=== PATIENT | female | born 1955 | race Caucasian/White ===

== ENCOUNTER 2019-09-05 05:45 | Day surgery (SDC) | payer MEDICARE ==
[2019-09-04 14:55] LABS: BASOPHILS 0.5 % (0-2); EOSINOPHILS 3.4 % (0-7); HEMATOCRIT 38.9 % (36.0-48.0); HEMOGLOBIN 12.6 g/dL (12-16); IMMATURE GRANULOCYTES 0.7 % (0-5); MCH 34.8 pg (26.0-34.0); MCHC 32.4 g/dL (31.0-37.0); MCV 107.5 fL (80.0-100.0); MEAN PLATELET VOLUME 9.5 fL (7.4-10.4); MONOCYTES 6.9 % (2-11); NEUTROPHILS 59.5 % (40-80); PLATELET COUNT 276 10x3/uL (130-400); RBC 3.62 10x6/uL (4.00-5.40); RDW 13.2 % (11.5-14.5)
[2019-09-04 15:06] LABS: APTT 31.1 SECONDS (22.8-39.4); INR 0.86 (0.85-1.17); PROTIME 11.3 SECONDS (11.6-15.0)
[2019-09-04 15:08] LABS: CALC OSMOLALITY 277 mosm/kg (275-300); CALCIUM 8.6 mg/dL (8.5-10.1); CHLORIDE - SERUM 105 mmol/L (98-107); CREATININE - SERUM 0.7 mg/dL (0.6-1.3); GLUCOSE 90 mg/dL (74-106); POTASSIUM - SERUM 4.1 mmol/L (3.5-5.1); SODIUM 140 mmol/L (136-145); UREA NITROGEN 10 mg/dL (7-18); eGFR NON AFRICAN AMERICAN 89 mL/min (90-120)
[~2019-09-05] VITALS: Ht 160 cm; Wt 73.0 kg
[~2019-09-05 05:45] MED LIST: ALBUTEROL SULF8.5 GM; CETIRIZINE HCL5 MG PO; CYCLOBENZAPRINE10 MG PO; CYMBALTA60 MG PO; DELSYM30 MG/5 M1 PO; HYDROCODON-ACE1 EA10 PO; LISINOPRIL5 MG PO; MUCINEX600 MG PO; NEXIUM20 MG PO; PREVALITE POWD231 GM PO; RESTORIL15 MG PO; WELLBUTRIN XL150 M1 PO
--- NOTE | 2019-09-05 06:36 | NUR ---
0620 PT REPORTS TAKING A SHOT OF WHISKEY WITH HER MORNING MEDICATIONS. INFORMATION RELAYED TO KEYBOARDING CLERK, QUAN PRATT, AND A BLOOD ALCOHOL LEVEL WAS REQUESTED FOR THIS PATIENT. 0637 PT CRYING AND VERY EMOTIONAL THIS AM. STATES HER MOTHER AND CHILD IN THIS HOSPITAL. PT STATES THAT SHE NEEDS SOME "HELP" [facility] CONSULT CALLED TO HOUSE NURSING SEMIAUTOMATIC STITCHER OPERATOR.
[2019-09-05 06:44] VITALS: Ht 160 cm; Wt 73.0 kg
--- NOTE | 2019-09-05 08:02 | NUR ---
DR. WELCH NOTIFIED AND REVIEWED PT'S BEHAVIOR AND ASSESSMENT RESULTS. PT IS A LOW RISK PER DR. WELCH. DR. WELCH STATED TO GIVE RESOURCES TO PT AT TIME OF DISCHARGE. NO FURTHER ORDERS AT THIS TIME. RESOURCES REVIWED WITH PT AND SHE VERBALIZED UNDERSTANDING.
--- NOTE | 2019-09-05 08:43 | NUR ---
PT RIGHT FOOT AND CALF NOTED HAVING SWELLING, REDNESS AND WARM TO TOUCH. REDNESS NOTED GOING UP RIGHT THIGH. PT STATES THAT SOMETIMES HER FEET SWELL BECAUSE SHE "CROSSES HER ANKLES ALOT." STATES SHE HAS NO HISTORY BLOOD CLOTS. NO REDNESS OR SWELLING NOTED TO LEFT FOOT OR LEG.
[2019-09-05] MEDS ORDERED: ROXICODONE15 MG PO (09:28)
--- NOTE | 2019-09-05 12:45 | NUR ---
PATIENT AMBULATES TO BATHROOM AND VOIDS LARGE AMOUNT IN TOILET WITHOUT DIFFICULTY. PIV DC'D WITH TIP INTACT. PATIENT DRESSING IN PERSONAL CLOTHING
--- NOTE | 2019-09-17 13:37 | OP ---
PATIENT NAME: RAVEN VANN MEDICAL RECORD: [id number] :53 LOCATION:D.OPS ADMISSION DATE: SURGEON: BREEZY SHEN MD DATE OF OPERATION: 09/05/2019 PREOPERATIVE DIAGNOSES: 1. Ventral hernia. 2. Umbilical hernia. 3. Left inguinal hernia. 4. Hypertension. 5. Asthma. POSTOPERATIVE DIAGNOSES: 1. Ventral hernia. 2. Umbilical hernia. 3. Left inguinal hernia. 4. Hypertension. 5. Asthma. PROCEDURE: 1. Ventral hernia repair. 2. Umbilical hernia repair. 3. Left inguinal hernia repair with medium PHS mesh. SURGEON: Breezy Shne MD REPORT OF PROCEDURE: The patient's abdomen and left groin were prepped and draped in sterile fashion. A midline incision was made in the epigastric region. Electrocautery was used to dissect through the subcutaneous tissues and we came down to a small hernia sac. We dissected around this hernia sac and we were eventually able to free the hernia sac up at the fascial edges. This tissue was pushed back into the abdominal cavity and we were able to inspect the anterior abdominal wall with finger dissection. I could feel down to the patient's umbilicus and there was a small hernia defect present there as well. The hernia defect was about 1.5 cm wide and about a cm tall. We went ahead and performed a primary closure with interrupted 0 Prolenes times 4 in a transverse fashion. There was good approximation of the tissue with little to no tension. We then irrigated out the wound with normal saline. The subcutaneous tissues were reapproximated with interrupted 3-0 Vicryl and the skin was closed with running subcutaneous 5-0 Monocryl. A 5 mL of 0.25% Marcaine with epinephrine was infused into the surrounding tissues of this wound. We then approached the umbilicus. A semicircular incision was made on the inferior aspect of the umbilicus. Electrocautery was used to dissect through the subcutaneous tissues and then the umbilicus was elevated. The patient had about a 1 cm or less sized hernia defect present. The fascial edges were cleared off using electrocautery and we approximated the fascial edges transversely with interrupted 0 Prolenes times 2. The umbilicus was tacked down to the fascial tissue using an interrupted 3-0 Vicryl and the subcutaneous tissues were reapproximated with interrupted 3-0 Vicryl. The skin was closed with running subcutaneous 5-0 Monocryl and 10 mL of 0.25% Marcaine plain was then infused into the surrounding tissues. We approached the left groin. An oblique incision was made over the left inguinal ligament. Electrocautery was used to dissect through the subcutaneous tissues to the external oblique fascia. There was noted to be a large amount of adhesions and scar tissue present in the left lower quadrant from previous Pfannenstiel incision. I took down these adhesions. Then we were OPERATIVE REPORT [id number] RAVEN VANN STEPHANIA able to dissect out the patient's external oblique fascia and the external ring. We opened up the external oblique fascia to this external ring using electrocautery. The round ligament was found and high ligated with 3-0 silks. The patient did have an indirect hernia defect. We were able to open up the inguinal floor and dissect free the preperitoneal space of Retzius. A medium PHS mesh was inserted and sutured down on all 4 sides using interrupted 0 Vicryls. We irrigated out the wound. We could see the ilioinguinal nerve and this was near the mesh, so we went ahead and performed a high ligation. The external oblique fascia was then closed with running 2-0 Vicryl, Adilia's was closed with interrupted 3-0 Vicryls and the skin was closed with running subcutaneous 5-0 Monocryl. A total of 10 mL of 0.25% Marcaine with epinephrine was infused into the surrounding tissues and all the wounds were dressed appropriately. COMPLICATIONS: None. CONDITION: Stable. ANESTHESIA: General endotracheal and local. BLOOD LOSS: Minimal. TRANSINT:[id number] Voice Confirmation ID: [id number] DOCUMENT ID: [id number] BREEZY SHEN MD at 1337 CC: FERNANDA RAYMUNDO [id number] DICTATION DATE: 09/05/1935 EVP SALES: 09/05/19 0953 [facility] [place] 09/05/[address] [address]
== END 2019-09-05 13:02 | disposition home or self-care (01) ==
LOC: D.OPS 05:45 → D.PAN 07:30 → D.OPS 07:30
PROVIDERS: Anesthesiology; ATTEND Surgery
DX: K43.9 Ventral hernia without obstruction or gangrene (principal); K42.9 Umbilical hernia without obstruction or gangrene; K40.90 Unilateral inguinal hernia, without obstruction or gangrene, not specified as recurrent; I10 Essential (primary) hypertension; J45.909 Unspecified asthma, uncomplicated